=== PATIENT | female | born 2000 | race Caucasian/White ===

== ENCOUNTER 2022-11-07 14:39 | Emergency (ER) | payer OTHER | END 2022-11-07 16:40 | disposition home or self-care (01) | LOC: CSHERS 14:39 | DX: S60.221A Contusion of right hand, initial encounter (principal); S50.12XA Contusion of left forearm, initial encounter; S50.812A Abrasion of left forearm, initial encounter; S40.812A Abrasion of left upper arm, initial encounter; S40.811A Abrasion of right upper arm, initial encounter; S80.812A Abrasion, left lower leg, initial encounter; S80.811A Abrasion, right lower leg, initial encounter; V89.2XXA Person injured in unspecified motor-vehicle accident, traffic, initial encounter ==